=== PATIENT | female | born 1980 | race Caucasian/White ===

== ENCOUNTER 2016-12-18 20:18 | Emergency (ER) | payer OTHER ==
[2016-12-18] MEDS ORDERED: Phenergan 25 MG INJ IV ONE (21:12)
[2016-12-18] MEDS ORDERED: Hydromorphone 1 mg/ml Ampule IV ONE (21:12)
[2016-12-18] MEDS ORDERED: Xopenex 1.25 MG/0.5 ML UD NEBULE IH ONE ×2 (21:15→21:24)
[2016-12-18] MEDS ORDERED: Sodium Chloride 0.9% 1000 ML 1,000 ML IV SCH (21:15)
[2016-12-18] MEDS ORDERED: ROCEPHIN 1 Gm-D5w 50 ml Bag** 1 G/50 ML IVPB IV STA (21:16)
--- NOTE | 2016-12-18 21:17 | ERPHSYRPT ---
- History of Present Illness Time Seen by Provider: 12/18/16 21:05 Source: patient Exam Limitations: no limitations Patient Subjective Stated Complaint: Pt sts at work, started with headache, then experienced bloody nose. No hx of high blood pressure. 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 Sts this resolves if she lays very still. Has hx of a lot of headaches recently. Pain is down the middle of the head. Pt denies N/V. Pt denies shortness of breath or chest pain. Pt with hx of migraines. pain 6/10 in head. Pt sts episodes of blurred vision. No change in pain with bright lights or loud noises. Triage Nursing Assessment: Pt alert, oriented, answers all questions appropriately. Skin p/w/d, resps non-labored. Pt ambulatory to tx room, steady gait noted. Physician History: ABOUT 4.5 HOURS AGO PT NOTICED HER BLOOD PRESSURE WAS ELEVATED AND EVENTUALLY GWENDOLYN TO 180/112 WITH A HEADACHE, NOSE BLEED, TRANSIENT IRREGULAR HEART BEAT AND DIZZINESS WITH MOVEMENT. PT STATES SHE HAS OCCASIONALLY HAD THIS IRREGULAR HEART BEAT FOR THE PAST 19 YEARS AND HAS HAD INCREASED FREQUENCY OF HEADACHES RECENTLY. Allergies/Adverse Reactions: adhesive Allergy (Verified 12/18/16 20:33) latex Adverse Reaction (Verified 12/18/16 20:33) Home Medications: Glycopyrrolate/Formoterol Fum [Bevespi Aerosphere Inhaler] 10.7 gm IH BID [History] Hx Tetanus, Diphtheria Vaccination/Date Given: No Hx Influenza Vaccination/Date Given: No Hx Pneumococcal Vaccination/Date Given: No Immunizations Up to Date: Yes - Review of Systems Constitutional: Other (ELEVATED BLOOD PRESSURE.), No Fever Ears, Nose, & Throat: Epistaxis Respiratory: No Dyspnea Cardiac: Palpitations, No Chest Pain Abdominal/Gastrointestinal: No Abdominal Pain, No Vomiting Neurological: Dizziness, Headache All Other Systems: Reviewed and Negative - Past Medical History Pertinent Past Medical History: Yes Neurological History: Migraines Respiratory History: Asthma Other Medical History: 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, "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" - Past Surgical History Past Surgical History: Yes Gastrointestinal: Cholecystectomy Musculoskeletal: Orthopedic Surgery Female Surgical History: Tubal Ligation - Social History Smoking Status: Current every day smoker How long have you smoked: 18 Exposure to second hand smoke: No Drug Use: none Patient Lives Alone: No - Female History Hx Last Menstrual Period: now - Nursing Vital Signs Nursing Vital Signs: Initial Vital Signs Temperature 99.0 F 12/18/16 20:29 Pulse Rate 94 H 12/18/16 20:29 Respiratory Rate 16 12/18/16 20:29 Blood Pressure 133/61 12/18/16 20:29 O2 Sat by Pulse Oximetry 96 12/18/16 20:29 Pain Scale Pain Intensity 6 - Physical Exam General Appearance: alert Eye Exam: PERRL/EOMI Ears, Nose, Throat Exam: moist mucous membranes, TM abnormal (L) (MILD LEFT TM ERYTHEMA), pharyngeal erythema Neck Exam: normal inspection Respiratory Exam: wheezing (MINIMAL EXPIRATORY WHEEZING) Cardiovascular Exam: normal heart sounds Gastrointestinal/Abdomen Exam: soft, normal bowel sounds Back Exam: normal range of motion Extremity Exam: normal inspection, No pedal edema Neurologic Exam: alert, cooperative, other (NO BABINSKI PRESENT) Skin Exam: warm, dry SpO2 Interpretation: normal SpO2: 96 Oxygen Delivery: Room Air - Course Nursing assessment & vital signs reviewed: Yes EKG Interpreted by Me: RATE (58), Sinus [place], NORMAL AXIS, NORMAL INTERVALS - Radiology Exams Chest X-ray Interpretation: Interpreted by me (INCREASED BRONCHOVASCULAR MARKINGS) - CT Exams Head CT Interpretation: Tele-radiologist Report (NO ACUTE INTRACRANIAL FINDINGS.) Ordered Tests: Active Orders 24 hr Category Date Time Status Clean Catch Urine Specimen STAT Care 12/18/16 21:12 Active EKG-ER Only STAT Care 12/18/16 21:12 Active IV Insertion STAT Care 12/18/16 21:12 Active CHEST 2 VIEWS (PA AND LAT) Stat Exams 12/18/16 21:12 Taken HEAD WITHOUT CONTRAST [CT] Stat Exams 12/18/16 21:12 Taken AMYLASE Stat Lab 12/18/16 21:15 Completed BLOOD CULTURE Stat Lab 12/18/16 21:25 Received CBC W DIFF Stat Lab 12/18/16 21:15 Completed CMP Stat Lab 12/18/16 21:15 Completed HCG QUALITATIVE,SERUM Stat Lab 12/18/16 21:15 Completed LIPASE Stat Lab 12/18/16 21:15 Completed MAGNESIUM Stat Lab 12/18/16 21:15 Completed PROTIME WITH INR Stat Lab 12/18/16 21:15 Completed PTT Stat Lab 12/18/16 21:15 Completed T4 Stat Lab 12/18/16 21:15 Completed TROPONIN Q3H Lab 12/18/16 21:15 Completed TROPONIN Q3H Lab 12/19/16 00:15 Ordered TROPONIN Q3H Lab 12/19/16 03:15 Ordered TROPONIN Q3H Lab 12/19/16 06:15 Ordered TROPONIN Q3H Lab 12/19/16 09:15 Ordered TSH, 3RD Generation Stat Lab 12/18/16 21:15 Completed UA W/RFX UR CULTURE Stat Lab 12/18/16 22:50 Completed Urine Triage Profile Stat Lab 12/18/16 22:50 Received Respiratory Nebulizer STAT RT 12/18/16 21:15 Completed Medication Summary Generic Name Dose Route Start Last Admin Trade Name Freq PRN Reason Stop Dose Admin Sodium Chloride 1,000 mls @ 100 mls/hr 12/18/16 21:15 12/18/16 21:27 Sodium Chloride 0.9% 1000 Ml IV 01/17/17 21:14 100 mls/hr .Q10H ANNE-MARIE Administration Discontinued Medications Generic Name Dose Route Start Last Admin Trade Name Freq PRN Reason Stop Dose Admin Hydromorphone HCl 1 mg 12/18/16 21:12 12/18/16 21:27 Hydromorphone 1 Mg/Ml Ampule IV 12/18/16 21:13 1 mg STAT ONE Administration Hydromorphone HCl Confirm 12/18/16 21:22 Hydromorphone 1 Mg/Ml Ampule Administered 12/18/16 21:23 Dose 1 mg .ROUTE .STK-MED ONE Ceftriaxone Sodium/Dextrose 1 g in 50 mls @ 100 mls/hr 12/18/16 21:16 21:27 Rocephin 1 Gm-D5w 50 Ml Bag IV 12/18/16 21:45 100 mls/hr STAT STA Administration Ceftriaxone Sodium/Dextrose Confirm 12/18/16 21:22 Rocephin 1 Gm-D5w 50 Ml Bag Administered 12/18/16 21:23 Dose 1 g in 50 mls @ ud IV .STK-MED ONE Levalbuterol HCl 1.25 mg 12/18/16 21:15 12/18/16 21:28 Xopenex 1.25 Mg/0.5 Ml Ud Nebule IH 12/18/16 21:16 1.25 mg STAT ONE Administration Levalbuterol HCl Confirm 12/18/16 21:24 Xopenex 1.25 Mg/0.5 Ml Ud Nebule Administered 12/18/16 21:25 Dose 1.25 mg IH .STK-MED ONE Promethazine HCl 12.5 mg 12/18/16 21:12 12/18/16 21:27 Phenergan 25 Mg Inj IV 12/18/16 21:13 12.5 mg STAT ONE Administration Promethazine HCl Confirm 12/18/16 21:22 Phenergan 25 Mg Inj Administered 12/18/16 21:23 Dose 25 mg .ROUTE .STK-MED ONE Sodium Chloride Confirm 12/18/16 21:24 Sodium Chloride 3 Ml Ud Nebules Administered 12/18/16 21:25 Dose 3 ml IH .STK-MED ONE Lab/Rad Data: Laboratory Result Diagrams 12/18/16 21:15 12/18/16 21:15 Laboratory Results 12/18/16 12/18/16 12/18/16 Range/Units 22:50 21:15 21:15 WBC 8.4 (4.0-10.5) K/mm3 RBC 4.51 (4.1-5.4) M/mm3 Hgb 14.3 (12.0-16.0) gm/dl Hct 41.5 (35-47) % MCV 92.0 (78-100) fl MCH 31.7 (26-32) pg MCHC 34.5 (32-36) g/dl RDW 12.9 (11.5-14.0) % Plt Count 196 (150-450) K/mm3 MPV 10.9 H (6-9.5) fl Gran % 52.2 (36.0-66.0) % Lymphocytes % 33.4 (24.0-44.0) % Monocytes % 7.0 (0.0-12.0) % Eosinophils % 7.2 H (0.00-5.0) % Basophils % 0.2 (0.0-0.4) % Basophils # 0.02 (0-0.4) INR 1.02 (0.8-3.0) APTT 28.9 (25.3-37.0) SECONDS Sodium (136-145) mEq/L Potassium (3.5-5.1) mEq/L Chloride (98-107) mEq/L Carbon Dioxide (21-32) mEq/L Anion Gap (5-15) MEQ/L BUN (9-20) mg/dL Creatinine (0.55-1.30) mg/dl Estimated GFR ML/MIN Glucose (70-110) MG/DL Calcium (8.5-10.1) mg/dL Magnesium (1.8-2.4) mg/dL Total Bilirubin (0.2-1.0) mg/dL AST (15-37) U/L ALT (12-78) U/L Alkaline Phosphatase (46-116) U/L Troponin I (0.000-0.056) ng/ml Serum Total Protein (6.4-8.2) gm/dL Albumin (3.4-5.0) g/dL Amylase (25-115) U/L Lipase (73-393) U/L Thyroxine (T4) (4.7-13.3) UG/DL TSH 3rd Generation (0.358-3.740) mIU/L Serum , Qual (Negative) Ur Collection Type CLEAN CATCH Urine Color YELLOW (YELLOW) Urine Appearance CLEAR (CLEAR) Urine pH 7.0 (5-6) Ur Specific [place] 1.010 (1.005-1.025) Urine Protein NEGATIVE (Negative) Urine Ketones NEGATIVE (NEGATIVE) Urine Blood NEGATIVE (0-5) Geovanny/ul Urine Nitrite NEGATIVE (NEGATIVE) Urine Bilirubin NEGATIVE (NEGATIVE) Urine Urobilinogen NORMAL (0-1) mg/dL Ur Leukocyte Esterase NEGATIVE (NEGATIVE) Urine Glucose NEGATIVE (NEGATIVE) mg/dL Specimen Received 12/18/16 2250 12/18/16 12/18/16 12/18/16 Range/Units 21:15 21:15 21:15 WBC (4.0-10.5) K/mm3 RBC (4.1-5.4) M/mm3 Hgb (12.0-16.0) gm/dl Hct (35-47) % MCV (78-100) fl MCH (26-32) pg MCHC (32-36) g/dl RDW (11.5-14.0) % Plt Count (150-450) K/mm3 MPV (6-9.5) fl Gran % (36.0-66.0) % Lymphocytes % (24.0-44.0) % Monocytes % (0.0-12.0) % Eosinophils % (0.00-5.0) % Basophils % (0.0-0.4) % Basophils # (0-0.4) INR (0.8-3.0) APTT (25.3-37.0) SECONDS Sodium 142 (136-145) mEq/L Potassium 3.6 (3.5-5.1) mEq/L Chloride 106 (98-107) mEq/L Carbon Dioxide 23.2 (21-32) mEq/L Anion Gap 16.6 H (5-15) MEQ/L BUN 8 L (9-20) mg/dL Creatinine 1.04 (0.55-1.30) mg/dl Estimated GFR > 60 ML/MIN Glucose 100 (70-110) MG/DL Calcium 9.2 (8.5-10.1) mg/dL Magnesium 1.8 (1.8-2.4) mg/dL Total Bilirubin 1.20 H (0.2-1.0) mg/dL AST 24 (15-37) U/L ALT 54 (12-78) U/L Alkaline Phosphatase 100 (46-116) U/L Troponin I < 0.017 (0.000-0.056) ng/ml Serum Total Protein 7.0 (6.4-8.2) gm/dL Albumin 3.9 (3.4-5.0) g/dL Amylase 38 (25-115) U/L Lipase 199 (73-393) U/L Thyroxine (T4) 7.9 (4.7-13.3) UG/DL TSH 3rd Generation 2.879 (0.358-3.740) mIU/L Serum , Qual NEGATIVE (Negative) Ur Collection Type Urine Color (YELLOW) Urine Appearance (CLEAR) Urine pH (5-6) Ur Specific [place] (1.005-1.025) Urine Protein (Negative) Urine Ketones (NEGATIVE) Urine Blood (0-5) Geovanny/ul Urine Nitrite (NEGATIVE) Urine Bilirubin (NEGATIVE) Urine Urobilinogen (0-1) mg/dL Ur Leukocyte Esterase (NEGATIVE) Urine Glucose (NEGATIVE) mg/dL Specimen Received - Departure Time of Disposition: 23:25 Departure Disposition: Home Clinical Impression: BRONCHITIS, LOM, PHARYNGITIS, HEADACHE, HTN Condition: Stable Critical Care Time: No Referrals: ANA HERNANDEZ [ACTIVE STAFF] - Instructions: Malignant Hypertension, Bronchitis, Otitis Media (Middle Ear Infection), Pharyngitis/Tonsillopharyngitis -- Adult Additional Instructions: FOLLOW UP WITH PRIVATE DOCTOR TOMORROW. Prescriptions: Guaifenesin/Codeine Phosphate [Robitussin AC Syrup] 10 ml PO Q4H PRN PRN #120 ml PRN Reason: Cough Azithromycin 250 mg [Zithromax 250 MG TABLET] 250 mg PO ZPACK #6 tablet
[2016-12-18] MEDS ORDERED: Phenergan 25 MG INJ ONE (21:22)
[2016-12-18] MEDS ORDERED: Sodium Chloride 0.9% 1000 ML 1,000 ML ONE (21:22)
[2016-12-18] MEDS ORDERED: ROCEPHIN 1 Gm-D5w 50 ml Bag** 1 G/50 ML IVPB IV ONE (21:22)
[2016-12-18] MEDS ORDERED: Hydromorphone 1 mg/ml Ampule ONE (21:22)
[2016-12-18] MEDS ORDERED: Sodium Chloride 3 ML UD NEBULES IH ONE (21:24)
[2016-12-18 21:29] LABS: BASOPHIL % 0.2 % (0.0-0.4); Eosinophil % 7.2 % (0.00-5.0); Granulocytes % 52.2 % (36.0-66.0); Lymphocytes % 33.4 % (24.0-44.0); Mean Corpuscular Hemoglobin 31.7 pg (26-32); Mean Platelet Volume 10.9 fl (6-9.5); Platelet Count 196 K/mm3 (150-450); Red Blood Count 4.51 M/mm3 (4.1-5.4); Red Cell Distribution Width 12.9 % (11.5-14.0); White Blood Count 8.4 K/mm3 (4.0-10.5)
[2016-12-18 21:30] LABS: INR 1.02 (0.8-3.0); PROTIME 11.5 SECONDS (9.95-12.35)
[2016-12-18 21:33] LABS: PTT 28.9 SECONDS (25.3-37.0)
[2016-12-18 21:45] LABS: ALBUMIN 3.9 g/dL (3.4-5.0); ALKALINE PHOSPHATASE 100 U/L (46-116); ANION GAP 16.6 MEQ/L (5-15); BLOOD UREA NITROGEN 8 mg/dL (9-20); CHLORIDE 106 mEq/L (98-107); Carbon Dioxide 23.2 mEq/L (21-32); Glucose 100 MG/DL (70-110); LIPASE 199 U/L (73-393); MAGNESIUM 1.8 mg/dL (1.8-2.4); Potassium 3.6 mEq/L (3.5-5.1); SGOT/AST 24 U/L (15-37); SGPT/ALT 54 U/L (12-78); SODIUM 142 mEq/L (136-145)
[2016-12-18 23:06] LABS: ADD URINE CULTURE? NO (NO); Bilirubin NEGATIVE (NEGATIVE); Blood NEGATIVE Ery/ul (0-5); COMPLETE URINE MICROSCOPIC? NO; Collection Type CLEAN CATCH; Glucose NEGATIVE (NEGATIVE); Leukocyte Esterase NEGATIVE (NEGATIVE)
[2016-12-18 23:35] VITALS: BP 139/72; PULSE 64; O2SAT 99
--- NOTE | 2016-12-19 08:43 | XRAY ---
Indication: Headache and nosebleed. High blood pressure. History of migraines. Multiple contiguous axial images obtained through the head without contrast. Comparison: January 19, 2009. Again normal appearing brain parenchyma, ventricles, and bony calvarium. Visualized paranasal sinuses and mastoid air cells clear. Impression: Stable normal CT head without contrast exam. Comment: Preliminary interpretation was made by [facility]. No discrepancy. CT DI 70.21
--- NOTE | 2016-12-19 08:46 | XRAY ---
Indication: Wheezing and cough. History of asthma. Comparison: January 18, 2009. AP/lateral chest remains clear. Heart is not enlarged. Bony thorax intact. No new/acute findings. Impression: Stable nonacute chest.
== END 2016-12-18 23:35 | disposition home or self-care (01) ==
LOC: ED 20:18
DX: J40 Bronchitis, not specified as acute or chronic (principal); H66.92 Otitis media, unspecified, left ear; J02.9 Acute pharyngitis, unspecified; R51 Headache; I10 Essential (primary) hypertension
CPT/HCPCS: 36000; 36415; 70450; 71020; 80053; 80307; 81002; 82150; 83690; 83735; 84436; 84443; 84484; 84703; 85025; 85610; 85730; 87040; 93005; 94640; 96360; 96361; 96365; 96374; 96375; 99283; 99284; J0696; J1170; J2550; A9270-GY

== ENCOUNTER 2022-02-01 12:08 | Observation (INO) | payer OTHER ==
[2022-02-01 13:55] LABS: INFLUENZA A NEGATIVE (NEGATIVE); INFLUENZA B NEGATIVE (NEGATIVE); RESPIRATORY SYNCTIAL VIRUS NEGATIVE (Negative); SARS-CoV-2 Xpert Express NEGATIVE (NEGATIVE)
[2022-02-01] MEDS ORDERED: Tessalon Perles 100 MG PO PRN (13:57)
[2022-02-01] MEDS ORDERED: UBROGEPANT 50 MG PO PRN (14:20)
[2022-02-01] MEDS: DUONEB 0.5-3 MG/3 ml Neb IH SCH ×3 (14:20→22:54)
[2022-02-01] MEDS ORDERED: FREMANEZUMAB VFRM 225 MG/1.5 ML SQ SCH (14:30)
[2022-02-01] MEDS ORDERED: MEDICATION INTERVENTION MC SCH ×4 (14:30→14:45)
[2022-02-01] MEDS ORDERED: AUTO INJCT SQ SCH (14:30)
[2022-02-01 14:48] LABS: Hematocrit 43.9 % (35-47); Hemoglobin 15.1 g/dL (12.0-16.0); Mean Cell Volume 94.4 fL (78-100); Mean Corpuscular Hemoglobin 32.5 pg (26-32); Mean Corpuscular Hgb Concent. 34.4 g/dL (32-36); Mean Platelet Volume 10.7 fL (7.5-11.0); Platelet Count 189 x10^3/uL (150-450); Red Blood Count 4.65 x10^6/uL (4.1-5.4); Red Cell Distribution Width 12.6 % (11.5-14.0); White Blood Count 7.9 x10^3/uL (4.0-10.5)
[2022-02-01 15:16] LABS: ANION GAP 10.2 MEQ/L (5-15); BLOOD UREA NITROGEN 10 mg/dL (7-17); CHLORIDE 101 mmol/L (98-107); Calcium 9.3 mg/dL (8.4-10.2); Carbon Dioxide 31 mmol/L (22-30); Creatinine 1 0.72 mg/dL (0.52-1.04); EST GLOMERULAR FILTRATION RATE > 60.0 ML/MIN; Glucose 102 mg/dL (74-106); Potassium 3.2 mmol/L (3.5-5.1); SODIUM 139 mmol/L (137-145)
[2022-02-01] MEDS ORDERED: PATIENT OWN MEDICATION PO PRN (15:20)
[2022-02-01] MEDS: COREG 12.5 MG PO SCH ×2 (15:30→21:22)
[2022-02-01] MEDS: solu-MEDROL 40 MG, Sterile H2O 10 ml 1 ML IV SCH ×4 (15:30→21:22)
[2022-02-01] MEDS: hydroDIURIL 25 MG PO SCH (15:30)
[2022-02-01] MEDS: ROCEPHIN 1 Gm-D5w 50 ml Bag** 1 G/50 ML IVPB IV SCH (15:30)
[2022-02-01] MEDS ORDERED: PROVENTIL 2.5 MG/3 ML NEB IH PRN (15:57)
[2022-02-01] MEDS: Zithromax 500 MG/ 250 ML NaCl Premix 500 MG/250 ML IVPB IV SCH (18:12)
[2022-02-01] MEDS: PATIENT OWN MEDICATION PO SCH (21:22)
[2022-02-01] MEDS: HYDROCODONE-CHLORPHEN ER SUSP PO PRN (21:23)
[2022-02-01] MEDS ORDERED: VARENICLINE TARTRATE 0.5 MG PO SCH (22:00)
[2022-02-02] MEDS: DUONEB 0.5-3 MG/3 ml Neb IH SCH ×6 (03:04→22:05)
[2022-02-02 05:36] LABS: Hematocrit 43.9 % (35-47); Mean Cell Volume 94.8 fL (78-100); Mean Corpuscular Hemoglobin 32.4 pg (26-32); Mean Corpuscular Hgb Concent. 34.2 g/dL (32-36); Mean Platelet Volume 10.6 fL (7.5-11.0); Platelet Count 188 x10^3/uL (150-450); Red Blood Count 4.63 x10^6/uL (4.1-5.4); Red Cell Distribution Width 12.5 % (11.5-14.0); White Blood Count 11.5 x10^3/uL (4.0-10.5)
[2022-02-02] MEDS: solu-MEDROL 40 MG, Sterile H2O 10 ml 1 ML IV SCH ×6 (05:51→22:06)
[2022-02-02 05:54] LABS: ALBUMIN 4.2 g/dL (3.5-5.0); ALKALINE PHOSPHATASE 81 U/L (38-126); ANION GAP 8.5 MEQ/L (5-15); BLOOD UREA NITROGEN 12 mg/dL (7-17); CHLORIDE 100 mmol/L (98-107); Calcium 9.7 mg/dL (8.4-10.2); Carbon Dioxide 31 mmol/L (22-30); Creatinine 1 0.68 mg/dL (0.52-1.04); EST GLOMERULAR FILTRATION RATE > 60.0 ML/MIN; Glucose 164 mg/dL (74-106); Potassium 3.5 mmol/L (3.5-5.1); SGOT/AST 28 U/L (14-36); SGPT/ALT 56 U/L (0-35); SODIUM 136 mmol/L (137-145); Total Protein 6.8 g/dL (6.3-8.2)
--- NOTE | 2022-02-02 08:58 | XRAY ---
Indication: Bronchitis, chest pain, cough, and short of breath. Comparison: February 01, 2022 PA/lateral chest remains clear. Heart not enlarged. Bony thorax intact. No new/acute findings.
[2022-02-02] MEDS: COREG 12.5 MG PO SCH ×2 (09:55→22:06)
[2022-02-02] MEDS: PATIENT OWN MEDICATION PO SCH ×3 (09:55→22:06)
[2022-02-02] MEDS: hydroDIURIL 25 MG PO SCH (09:55)
[2022-02-02] MEDS: SYNTHROID 25 MCG PO SCH (09:55)
[2022-02-02] MEDS ORDERED: FLUZONE QUAD 2022-2023 SYRINGE IM ONE (10:00)
[2022-02-02] MEDS ORDERED: NON-FORMULARY ITEM (Dextroamphetamine/Amphetamine [Adderall 10 Mg Tablet] 10 MG Tablet) PO SCH (10:00)
[2022-02-02] MEDS ORDERED: hydroDIURIL 25 MG PO SCH (10:00)
[2022-02-02] MEDS: HYDROCODONE-CHLORPHEN ER SUSP PO PRN ×2 (10:02→22:14)
[2022-02-02] MEDS: ROCEPHIN 1 Gm-D5w 50 ml Bag** 1 G/50 ML IVPB IV SCH (10:03)
[2022-02-02] MEDS: Zithromax 500 MG/ 250 ML NaCl Premix 500 MG/250 ML IVPB IV SCH (11:16)
--- NOTE | 2022-02-02 17:50 | PCM.HP.ADD ---
Addendum to History & Physical - History & Physical Addendum Addendum to History & Physical: This certifies that the History & Physical in the electronic chart reflects the current health status of the patient. If there are changes in the H&P these changes/exceptions are listed as follows.
--- NOTE | 2022-02-02 17:53 | PCM.HP ---
History of Present Illness - Chief Complaint Chief Complaint: ACUTE EXACERBATION OF CHRONIC BRONCHITIS History of Present Illness: is a 41 year old female came to office with 2 weeks history of cough and shortness of breath and fever. - Review of Systems Constitutional: Fever, Chills, Weakness Eyes: No Symptoms Ears, Nose, & Throat: No Symptoms Respiratory: Cough, Orthopnea, Short Of Breath, Wheezing Cardiac: No Chest Pain, No Edema, No Syncope Abdominal/Gastrointestinal: No Abdominal Pain, No Nausea, No Vomiting, No Diarrhea Genitourinary Symptoms: No Dysuria Musculoskeletal: No Back Pain, No Neck Pain Skin: No Rash Neurological: No Dizziness, No Focal Weakness, No Sensory Changes Psychological: No Symptoms Endocrine: No Symptoms Hematologic/Lymphatic: No Symptoms Immunological/Allergic: No Symptoms Medications & Allergies Home Medications: Home Medication List Carvedilol 12.5 mg [Coreg 12.5 mg] 12.5 mg PO BID 02/01/22 [History Confirmed 02/01/22] Dextroamphetamine/Amphetamine [Adderall 10 mg Tablet] 10 mg PO DAILY 02/01/22 [History Confirmed 02/01/22] Fremanezumab-Vfrm [Ajovy Autoinjector] 1.5 ml SQ UD 02/01/22 [History Confirmed 02/01/22] Hydrochlorothiazide 25 mg [hydroDIURIL 25 MG] 25 mg PO DAILY 02/01/22 [History Confirmed 02/01/22] Levothyroxine Sodium 25 Mcg [Synthroid 25 Mcg] 25 mcg PO DAILY 02/01/22 [History Confirmed 02/01/22] Ubrogepant [Ubrelvy] 50 mg PO Q6HPRN PRN 02/01/22 [History Confirmed 02/01/22] Varenicline Tartrate 0.5 mg PO BID 02/01/22 [History Confirmed 02/01/22] Allergies/Adverse Reactions: Allergies Allergy/AdvReac Type Severity Reaction Status Date / Time adhesive Allergy Verified 12/18/16 20:33 gluten Allergy Verified 02/01/22 14:03 latex AdvReac Verified 12/18/16 20:33 - Past Medical History Past Medical History: Yes Neurological History: Migraines ENT History: No Pertinent History Cardiac History: Hypertension Respiratory History: Asthma, Bronchitis Endocrine Medical History: Hypothyroidism Musculoskelatal History: No Pertinent History GI Medical History: Other History: No Pertinent History Pyscho-Social History: Attention Deficit Disorder Reproductive Disorders: Cervical Cancer Comment: 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 CELIAC DISEASE - Female History Are you now?: No - Past Surgical History Past Surgical History: Yes Neuro Surgical History: No Pertinent History Cardiac History: Other Respiratory Surgery: No Pertinent History GI Surgical History: Cholecystectomy Genitourinary Surgical Hx: No Pertinent History Musculskeletal Surgical Hx: Orthopedic Surgery Female Surgical History: Hysterectomy, Tubal Ligation Other Surgical History: 2 KNEE AND 1 SHOULDER. CARDIAC ABLATION 16 YEARS OLD - Social History Smoking Status: Current every day smoker How long have you smoked: 14 YEARS Exposure to second hand smoke: No Alcohol: None Drug Use: none - Physical Exam Vital Signs: Vital Signs - 24 hr Temp Pulse Resp BP Pulse Ox 02/02/22 16:00 97.7 F 95 H 16 118/64 95 02/02/22 14:32 79 20 95 02/02/22 12:00 97.1 F 91 H 16 109/68 96 02/02/22 11:15 82 18 95 02/02/22 08:02 94 H 20 96 02/02/22 07:54 96.9 F 88 17 119/58 94 L 02/02/22 04:00 98.2 F 64 18 130/58 95 02/02/22 03:07 84 16 95 02/02/22 00:00 98.2 F 64 18 128/60 95 02/01/22 22:55 77 20 98 02/01/22 20:00 97.1 F 78 20 132/64 95 02/01/22 19:16 77 18 97 General Appearance: no apparent distress, alert Neurologic Exam: alert, oriented x 3, cooperative, normal mood/affect, nml cerebellar function, nml station & gait, sensation nml, No motor deficits Eye Exam: PERRL/EOMI, eyes nml inspection Ears, Nose, Throat Exam: normal ENT inspection, TMs normal, pharynx normal, moist mucous membranes Neck Exam: normal inspection, non-tender, supple, full range of motion Respiratory Exam: diminished breath sounds, crackles/rales, rhonchi, wheezing, No respiratory distress Cardiovascular Exam: regular rate/rhythm, normal heart sounds, normal peripheral pulses Gastrointestinal/Abdomen Exam: soft, normal bowel sounds, No tenderness, No mass Back Exam: normal inspection, normal range of motion, No CVA tenderness, No vertebral tenderness Extremity Exam: normal inspection, normal range of motion, pelvis stable Skin Exam: normal color, warm, dry, No rash Lymphatic Exam: No adenopathy Results - Labs Lab/Micro Results: Lab Results-Last 24 Hours 02/02/22 02/02/22 Range/Units 04:50 04:50 WBC 11.5 H (4.0-10.5) x10^3/uL RBC 4.63 (4.1-5.4) x10^6/uL Hgb 15.0 (12.0-16.0) g/dL Hct 43.9 (35-47) % MCV 94.8 (78-100) fL MCH 32.4 H (26-32) pg MCHC 34.2 (32-36) g/dL RDW 12.5 (11.5-14.0) % Plt Count 188 (150-450) x10^3/uL MPV 10.6 (7.5-11.0) fL Sodium 136 L (137-145) mmol/L Potassium 3.5 (3.5-5.1) mmol/L Chloride 100 (98-107) mmol/L Carbon Dioxide 31 H (22-30) mmol/L Anion Gap 8.5 (5-15) MEQ/L BUN 12 (7-17) mg/dL Creatinine 0.68 (0.52-1.04) mg/dL Estimated GFR > 60.0 ML/MIN Glucose 164 H (74-106) mg/dL Calcium 9.7 (8.4-10.2) mg/dL Total Bilirubin 0.60 (0.2-1.3) mg/dL AST 28 (14-36) U/L ALT 56 H (0-35) U/L Alkaline Phosphatase 81 (38-126) U/L Serum Total Protein 6.8 (6.3-8.2) g/dL Albumin 4.2 (3.5-5.0) g/dL - Radiology Impressions Radiology Exams & Impressions: Radiology Procedures Category Date Time Status CHEST 2 VIEWS (PA AND LAT) Routine Exams 02/02/22 06:09 Completed - Other Procedures and Tests Respiratory Therapy 02/02/22 07:00 Respiratory Therapy Assessment DAILY Assessment/Plan (1) Acute exacerbation of chronic bronchitis Current Visit: Yes Status: Acute Assessment & Plan: Chief Complaint Diagnosis ACUTE EXACERBATION OF CHRONIC BRONCHITIS Allergies Allergy/AdvReac Type Severity Reaction Status Date / Time adhesive Allergy Verified 12/18/16 20:33 gluten Allergy Verified 02/01/22 14:03 latex AdvReac Verified 12/18/16 20:33 Vital Signs (Last 24 hours) Temp Pulse Resp BP Pulse Ox 02/02/22 16:00 97.7 F 95 H 16 118/64 95 02/02/22 14:32 79 20 95 02/02/22 12:00 97.1 F 91 H 16 109/68 96 02/02/22 11:15 82 18 95 02/02/22 08:02 94 H 20 96 02/02/22 07:54 96.9 F 88 17 119/58 94 L 02/02/22 04:00 98.2 F 64 18 130/58 95 02/02/22 03:07 84 16 95 02/02/22 00:00 98.2 F 64 18 128/60 95 02/01/22 22:55 77 20 98 02/01/22 20:00 97.1 F 78 20 132/64 95 02/01/22 19:16 77 18 97 Home Medications Medication Instructions Recorded Confirmed Last Taken Type Carvedilol 12.5 mg [Coreg 12.5 12.5 mg PO BID 02/01/22 02/01/22 01/31/22 History mg] Dextroamphetamine/Amphetamine 10 mg PO DAILY 02/01/22 02/01/22 02/01/22 History [Adderall 10 mg Tablet] Fremanezumab-Vfrm [Ajovy 1.5 ml SQ UD 02/01/22 02/01/22 01/30/22 History Autoinjector] Hydrochlorothiazide 25 mg 25 mg PO DAILY 02/01/22 02/01/22 01/31/22 History [hydroDIURIL 25 MG] Levothyroxine Sodium 25 Mcg 25 mcg PO DAILY 02/01/22 02/01/22 02/01/22 History [Synthroid 25 Mcg] Ubrogepant [Ubrelvy] 50 mg PO Q6HPRN PRN 02/01/22 02/01/22 Unknown History Varenicline Tartrate 0.5 mg PO BID 02/01/22 02/01/22 01/31/22 History Current Medications Generic Name Dose Route Start Last Admin Trade Name Freq PRN Reason Stop Dose Admin Albuterol Sulfate 2.5 mg 02/01/22 15:57 Albuterol Sulfate 2.5 Mg/3 Ml [facility] 03/03/22 15:56 Q4HPRN PRN SHORTNESS OF BREATH Albuterol/Ipratropium 3 ml 02/01/22 15:00 02/02/22 14:30 Ipratropium/Albuterol Sulfate 3 Ml [facility] 03/03/22 14:59 3 ml Q4HRT ANNE-MARIE Administration Benzonatate 100 mg 02/01/22 13:57 Benzonatate 100 Mg Capsule PO 03/03/22 13:56 QID PRN PRN COUGH Carvedilol 12.5 mg 02/01/22 15:00 02/02/22 09:55 Carvedilol 12.5 Mg Tablet PO 03/03/22 14:59 12.5 mg BID ANNE-MARIE Administration Chlorphenir/Hydrocodone Polistirex 5 ml 02/01/22 13:57 02/02/22 10:02 Hydrocodone/Chlorphen P-Stirex 1 Ml Britt.Er.12h PO 03/03/22 13:56 5 ml [id number] PRN Administration COUGH Methylprednisolone Sodium 0 mg 02/01/22 14:00 02/02/22 14:07 Succinate 40 mg/ Sterile Water IV 03/03/22 13:59 40 mg 1 ml Q8HT ANNE-MARIE Administration Hydrochlorothiazide 25 mg 02/01/22 15:00 02/02/22 09:55 Hydrochlorothiazide 25 Mg Tablet PO 03/03/22 14:59 25 mg DAILY ANNE-MARIE Administration Ceftriaxone Sodium/Dextrose 1 g in 50 mls @ 100 mls/hr 02/01/22 16:00 02/02/22 10:03 Rocephin 1 Gm-D5w 50 Ml Bag IV 02/04/22 15:59 100 mls/hr Q24H10 ANNE-MARIE Administration Azithromycin 500 mg in 250 mls @ 250 mls/hr 02/01/22 18:00 02/02/22 11:16 Zithromax 500 Mg/ 250 Ml Nacl Premix IV 03/03/22 17:59 250 mls/hr Q24H10 ANNE-MARIE Administration Levothyroxine Sodium 25 mcg 02/02/22 10:00 02/02/22 09:55 Levothyroxine Sodium 25 Mcg Tablet PO 03/04/22 09:59 25 mcg DAILY ANNE-MARIE Administration Varenicline 0.5 Mg - 1 each 02/01/22 22:00 02/02/22 09:55 Patient Own Med PO 03/03/22 21:59 1 each Misc BID ANNE-MARIE Administration Adderall 10 Mg - 1 each 02/02/22 10:00 02/02/22 09:56 Patient Own Med PO 03/04/22 09:59 1 each Misc DAILY ANNE-MARIE Administration Ubrelvy 50 Mg - 1 each 02/01/22 15:20 Patient Own Med PO 03/03/22 15:19 Misc Q6HPRN PRN Discontinued Medications Generic Name Dose Route Start Last Admin Trade Name Freq PRN Reason Stop Dose Admin Miscellaneous Information 1 each 02/01/22 14:30 Medication Intervention 1 Each Each 03/03/22 14:29 .RN TO CHECK ANNE-MARIE Miscellaneous Information 1 each 02/01/22 14:30 Medication Intervention 1 Each Each 03/03/22 14:29 .RN TO CHECK ANNE-MARIE Miscellaneous Information 1 each 02/01/22 14:45 Medication Intervention 1 Each Each 03/03/22 14:44 .RN TO CHECK ANNE-MARIE Miscellaneous Information 1 each 02/01/22 14:45 Medication Intervention 1 Each Each 03/03/22 14:44 .RN TO CHECK ANNE-MARIE Intake & Output (Last 24 hours) 01/31/22 02/01/22 02/02/22 02/03/22 11:59 11:59 11:59 11:59 Intake Total 1440 240 Balance 1440 240 Weight 98.4 kg Laboratory Results (Last 24 hours) 02/02/22 02/02/22 04:50 04:50 WBC 11.5 H RBC 4.63 Hgb 15.0 Hct 43.9 MCV 94.8 MCH 32.4 H MCHC 34.2 RDW 12.5 Plt Count 188 MPV 10.6 Sodium 136 L Potassium 3.5 Chloride 100 Carbon Dioxide 31 H Anion Gap 8.5 BUN 12 Creatinine 0.68 Estimated GFR > 60.0 Glucose 164 H Calcium 9.7 Total Bilirubin 0.60 AST 28 ALT 56 H Alkaline Phosphatase 81 Serum Total Protein 6.8 Albumin 4.2 Orders (Last 24 hours) Category Date Time Status CHEST 2 VIEWS (PA AND LAT) Routine Exams 02/02/22 06:09 Completed CBC AM.LAB Lab 02/02/22 04:50 Completed CMP AM.LAB Lab 02/02/22 04:50 Completed Azithromycin 500 mg/250 ml [Zithromax 500 MG/ 250 ML Med 02/01/22 18:00 Active NaCl Premix] 500 mg in 250 ml IV Q24H10 Flu Vacc [id number](6Mos Up)/Pf [Fluzone Quad Med 02/02/22 10:00 Discontinued Syringe] 60 mcg IM .ONCE ONE Levothyroxine Sodium 25 Mcg [Synthroid 25 Mcg] Med 02/02/22 10:00 Active 25 mcg PO DAILY Patient Own Med [Patient Own Medication] Med 02/01/22 22:00 Active 1 each PO BID Patient Own Med [Patient Own Medication] Med 02/02/22 10:00 Active 1 each PO DAILY Respiratory Therapy Assessment DAILY RT 02/02/22 07:00 Active Patient Care Notes (Last 24 hours) 02/02/22 03:30 Nursing Note by Gretta High Dr notified of potassium level of 3.2. No orders received. Initialized on 02/02/22 03:30 - END OF NOTE Code(s): J20.9 - ACUTE BRONCHITIS, UNSPECIFIED; J42 - UNSPECIFIED CHRONIC BRONCHITIS
[2022-02-03] MEDS: DUONEB 0.5-3 MG/3 ml Neb IH SCH ×3 (02:52→10:36)
[2022-02-03] MEDS: solu-MEDROL 40 MG, Sterile H2O 10 ml 1 ML IV SCH ×2 (06:19)
[2022-02-03] MEDS: COREG 12.5 MG PO SCH (10:19)
[2022-02-03] MEDS: hydroDIURIL 25 MG PO SCH (10:19)
[2022-02-03] MEDS: SYNTHROID 25 MCG PO SCH (10:19)
[2022-02-03] MEDS: PATIENT OWN MEDICATION PO SCH ×2 (10:19→10:20)
[2022-02-03] MEDS: ROCEPHIN 1 Gm-D5w 50 ml Bag** 1 G/50 ML IVPB IV SCH (10:20)
[2022-02-03 11:35] VITALS: BP 123/76; PULSE 75; O2SAT 91
[2022-02-03] MEDS: Zithromax 500 MG/ 250 ML NaCl Premix 500 MG/250 ML IVPB IV SCH (11:41)
--- NOTE | 2022-02-03 13:04 | PCM.DS ---
Discharge Summary Date of Admission: 02/01/22 12:39 Admitting Physician: JAQUELIN ZABALA Primary Care Provider: JAQUELIN ZABALA Allergies Allergies adhesive Allergy (Verified 12/18/16 20:33) gluten Allergy (Verified 02/01/22 14:03) latex Adverse Reaction (Verified 12/18/16 20:33) Hospital Summary - Hospital Course Hospital Course: Chief Complaint Diagnosis ACUTE EXACERBATION OF CHRONIC BRONCHITIS Allergies Allergy/AdvReac Type Severity Reaction Status Date / Time adhesive Allergy Verified 12/18/16 20:33 gluten Allergy Verified 02/01/22 14:03 latex AdvReac Verified 12/18/16 20:33 Vital Signs (Last 24 hours) Temp Pulse Resp BP Pulse Ox 02/03/22 11:34 98.0 F 75 16 123/76 91 L 02/03/22 10:36 80 14 94 L 02/03/22 07:08 97.5 F 62 17 104/58 95 02/03/22 06:53 80 22 95 02/03/22 04:00 97.1 F 72 21 103/55 90 L 02/03/22 02:54 81 16 94 L 02/03/22 00:00 96.9 F 86 20 114/65 91 L 02/02/22 22:08 69 20 96 02/02/22 20:00 97.1 F 86 20 117/67 95 02/02/22 19:00 62 20 96 02/02/22 16:00 97.7 F 95 H 16 118/64 95 02/02/22 14:32 79 20 95 Home Medications Medication Instructions Recorded Confirmed Last Taken Type Carvedilol 12.5 mg [Coreg 12.5 12.5 mg PO BID 02/01/22 02/01/22 01/31/22 History mg] Dextroamphetamine/Amphetamine 10 mg PO DAILY 02/01/22 02/01/22 02/01/22 History [Adderall 10 mg Tablet] Fremanezumab-Vfrm [Ajovy 1.5 ml SQ UD 02/01/22 02/01/22 01/30/22 History Autoinjector] Hydrochlorothiazide 25 mg 25 mg PO DAILY 02/01/22 02/01/22 01/31/22 History [hydroDIURIL 25 MG] Levothyroxine Sodium 25 Mcg 25 mcg PO DAILY 02/01/22 02/01/22 02/01/22 History [Synthroid 25 Mcg] Ubrogepant [Ubrelvy] 50 mg PO Q6HPRN PRN 02/01/22 02/01/22 Unknown History Varenicline Tartrate 0.5 mg PO BID 02/01/22 02/01/22 01/31/22 History Current Medications Generic Name Dose Route Start Last Admin Trade Name Freq PRN Reason Stop Dose Admin Albuterol Sulfate 2.5 mg 02/01/22 15:57 Albuterol Sulfate 2.5 Mg/3 Ml Neb IH 03/03/22 15:56 Q4HPRN PRN SHORTNESS OF BREATH Albuterol/Ipratropium 3 ml 02/01/22 15:00 02/03/22 10:36 Ipratropium/Albuterol Sulfate 3 Ml Ampul.Neb IH 03/03/22 14:59 3 ml Q4HRT ANNE-MARIE Administration Benzonatate 100 mg 02/01/22 13:57 Benzonatate 100 Mg Capsule PO 03/03/22 13:56 QID PRN PRN COUGH Carvedilol 12.5 mg 02/01/22 15:00 02/03/22 10:19 Carvedilol 12.5 Mg Tablet PO 03/03/22 14:59 12.5 mg BID ANNE-MARIE Administration Chlorphenir/Hydrocodone Polistirex 5 ml 02/01/22 13:57 02/02/22 22:14 Hydrocodone/Chlorphen P-Stirex 1 Ml Britt.Er.12h PO 03/03/22 13:56 5 ml [id number] PRN Administration COUGH Methylprednisolone Sodium 0 mg 02/01/22 14:00 02/03/22 06:19 Succinate 40 mg/ Sterile Water IV 03/03/22 13:59 40 mg 1 ml Q8HT ANNE-MARIE Administration Hydrochlorothiazide 25 mg 02/01/22 15:00 02/03/22 10:19 Hydrochlorothiazide 25 Mg Tablet PO 03/03/22 14:59 25 mg DAILY ANNE-MARIE Administration Ceftriaxone Sodium/Dextrose 1 g in 50 mls @ 100 mls/hr 02/01/22 16:00 02/03/22 10:20 Rocephin 1 Gm-D5w 50 Ml Bag IV 02/04/22 15:59 100 mls/hr Q24H10 ANNE-MARIE Administration Azithromycin 500 mg in 250 mls @ 250 mls/hr 02/01/22 18:00 02/03/22 11:41 Zithromax 500 Mg/ 250 Ml Nacl Premix IV 03/03/22 17:59 250 mls/hr Q24H10 ANNE-MARIE Administration Levothyroxine Sodium 25 mcg 02/02/22 10:00 02/03/22 10:19 Levothyroxine Sodium 25 Mcg Tablet PO 03/04/22 09:59 25 mcg DAILY ANNE-MARIE Administration Varenicline 0.5 Mg - 1 each 02/01/22 22:00 02/03/22 10:20 Patient Own Med PO 03/03/22 21:59 1 each Misc BID ANNE-MARIE Administration Adderall 10 Mg - 1 each 02/02/22 10:00 02/03/22 10:19 Patient Own Med PO 03/04/22 09:59 1 each Misc DAILY ANNE-MARIE Administration Ubrelvy 50 Mg - 1 each 02/01/22 15:20 Patient Own Med PO 03/03/22 15:19 Misc Q6HPRN PRN Discontinued Medications Generic Name Dose Route Start Last Admin Trade Name Freq PRN Reason Stop Dose Admin Miscellaneous Information 1 each 02/01/22 14:30 Medication Intervention 1 Each Each 03/03/22 14:29 .RN TO CHECK ANNE-MARIE Miscellaneous Information 1 each 02/01/22 14:30 Medication Intervention 1 Each Each 03/03/22 14:29 .RN TO CHECK ANNE-MARIE Miscellaneous Information 1 each 02/01/22 14:45 Medication Intervention 1 Each Each 03/03/22 14:44 .RN TO CHECK ANNE-MARIE Miscellaneous Information 1 each 02/01/22 14:45 Medication Intervention 1 Each Each 03/03/22 14:44 .RN TO CHECK ANNE-MARIE Intake & Output (Last 24 hours) 02/01/22 02/02/22 02/03/22 02/04/22 11:59 11:59 11:59 11:59 Intake Total 1440 2249 375 Balance 1440 2249 375 Weight 98.4 kg Patient Care Notes (Last 24 hours) 02/03/22 12:56 Case Management Note by Charito Jiang ORDER FOR [employer] MACHINE CALLED INTO [facility] Initialized on 02/03/22 12:56 - END OF NOTE 02/03/22 10:16 Case Management Note by Charito Jinag REVIEWED CHART- NO NEW NEEDS IDENTIFIED FOR DC. SHE PLANS TO RETURN HOME TO HER PRIOR LEVEL OF FUNCTIONING AT TIME OF DC. PATIENT REPORTS SHE FEELS MORE RELIEF WITH NEBULES VS INHALERS. SHE WOULD LIKE AN RX FOR NEBS AT TIME OF DC AND WILL NEED AN RX FOR NEB MACHINE CALLED INTO HER PHARMACY. PRIMARY RN AWARE Initialized on 02/03/22 10:16 - END OF NOTE - Vitals & Intake/Output Vital Signs: Vital Signs Temperature 98.0 F 02/03/22 11:34 Pulse Rate 75 02/03/22 11:34 Respiratory Rate 16 02/03/22 11:34 Blood Pressure 123/76 02/03/22 11:34 O2 Sat by Pulse Oximetry 91 L 02/03/22 11:34 Intake & Output: Intake & Output 02/01/22 02/02/22 02/03/22 02/04/22 11:59 11:59 11:59 11:59 Intake Total 1440 2249 375 Balance 1440 2249 375 Weight 98.4 kg - Lab Result Diagrams: 02/02/22 04:50 02/02/22 04:50 - Radiology Exams Ordered Rad Exams-Entire Visit: Radiology Procedures Category Date Time Status CHEST 2 VIEWS (PA AND LAT) Routine Exams 02/02/22 06:09 Completed - Procedures and Test Procedures and Tests throughout Hospitalization: Therapy Orders & Screens 02/01/22 14:50 Oxygen NASAL CANNULA 2 lpm Comment: Diagnosis: ACUTE EXACERBATION OF CHRONIC BRONCHITIS 02/01/22 14:52 Flutter Therapy UD Comment: Diagnosis: ACUTE EXACERBATION OF CHRONIC BRONCHITIS 02/02/22 07:00 Respiratory Therapy Assessment DAILY Comment: Diagnosis: ACUTE EXACERBATION OF CHRONIC BRONCHITIS Discharge Exam General Appearance: no apparent distress, alert Neurologic Exam: alert, oriented x 3, cooperative, normal mood/affect, nml cerebellar function, sensation nml, No motor deficits Eye Exam: PERRL, EOMI, eyes nml inspection Ears, Nose, Throat Exam: normal ENT inspection, pharynx normal, moist mucous membranes Neck Exam: normal inspection, non-tender, supple, full range of motion Respiratory Exam: normal breath sounds, lungs clear, No respiratory distress Cardiovascular Exam: regular rate/rhythm, normal heart sounds Gastrointestinal/Abdomen Exam: soft, No tenderness, No mass Pelvic Exam: deferred Rectal Exam: deferred Back Exam: normal inspection, normal range of motion, No CVA tenderness, No vertebral tenderness Extremity Exam: normal inspection, normal range of motion Skin Exam: normal color, warm, dry Final Diagnosis/Problem List - Final Discharge Diagnosis/Problem (1) Acute exacerbation of chronic bronchitis Current Visit: Yes Status: Acute Code(s): J20.9 - ACUTE BRONCHITIS, UNSPECIFIED; J42 - UNSPECIFIED CHRONIC BRONCHITIS - Discharge Discharge Date: 02/03/22 Disposition: Home, Self-Care Condition: Stable Prescriptions: No Action Ubrogepant [Ubrelvy] 50 mg PO Q6HPRN PRN PRN Reason: Headache Fremanezumab-Vfrm [Ajovy Autoinjector] 1.5 ml SQ UD Levothyroxine Sodium 25 Mcg [Synthroid 25 Mcg] 25 mcg PO DAILY Hydrochlorothiazide 25 mg [hydroDIURIL 25 MG] 25 mg PO DAILY Carvedilol 12.5 mg [Coreg 12.5 mg] 12.5 mg PO BID Dextroamphetamine/Amphetamine [Adderall 10 mg Tablet] 10 mg PO DAILY Varenicline Tartrate 0.5 mg PO BID Additional Instructions: NEBULIZER MACHINE CALLED INTO [facility] Follow up with: JAQUELIN ZABALA MD [Primary Care Provider] - 02/10/22 2:30 pm ([facility])
== END 2022-02-03 13:26 | disposition home or self-care (01) ==
LOC: MED SURG 12:39
PROVIDERS: ADMIT General Practice; ATTEND General Practice
DX: J20.9 Acute bronchitis, unspecified (principal); I10 Essential (primary) hypertension; Z79.899 Other long term (current) drug therapy; Z20.828 Contact with and (suspected) exposure to other viral communicable diseases; Z85.41 Personal history of malignant neoplasm of cervix uteri; Z72.0 Tobacco use
CPT/HCPCS: 0241U; 36415; 71046; 80048; 80053; 85027; 94640; 94667; 94760; G0378; J0456; J0696; J2920; A9270-GY

== ENCOUNTER 2025-01-03 01:15 | Emergency (ER) | payer OTHER ==
--- NOTE | 2025-01-03 02:21 | ERPHSYRPT ---
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 she reports this injury occurred around 10:30 PM she felt like she felt a pop in her lower back denies any falls patient is been able to ambulate but limited secondary to pain patient reports she is due back to work tomorrow morning at 9 AM but is concerned because of her pain in her back denies any fevers denies any bowel or bladder incontinence now in ED for further eval Timing/Duration: today Method of Injury: bending, lifting Quality: aching Back Pain Location: lumbar spine Severity of Pain-Max: mild Severity of Pain-Current: mild Modifying Factors: Improves With: nothing Associated Symptoms: tingling in legs/feet, muscle spasms, No fever, No chills, No sweating, No urinary incontinence, No sensory/motor loss Allergies/Adverse Reactions: naltrexone Allergy (Severe, Verified 10/07/24 08:27) Anaphylactic Reaction adhesive Allergy (Verified 10/07/24 08:27) gluten Allergy (Verified 10/07/24 08:27) latex Adverse Reaction (Verified 10/07/24 08:27) Home Medications: Atorvastatin Calcium 1 tab PO DAILY 10/07/24 [History] Eptinezumab-Jjmr [Vyepti] 100 mg IV Q3M 10/07/24 [History] Famotidine 20 mg [Pepcid 20 MG] 1 tab PO DAILY 10/07/24 [History] Ketorolac Trometh 10 mg Tab [TORAdol 10 MG TABLET] 1 tab PO DAILY 10/07/24 [History] Levothyroxine Sodium [Synthroid] 25 mcg PO DAILY 10/07/24 [History] Lisinopril 20 mg [Zestril 20 MG] 1 tab PO DAILY 10/07/24 [History] Ubrogepant [Ubrelvy] 1 tab PO DAILY PRN 10/07/24 [History] Zavegepant HCl [Zavzpret] 1 spray IN DAILY 10/07/24 [History] Hx Tetanus, Diphtheria Vaccination/Date Given: No Hx Influenza Vaccination/Date Given: No Hx Pneumococcal Vaccination/Date Given: No - Review of Systems Constitutional: No Fever, No Chills Eyes: No Symptoms Ears, Nose, & Throat: No Symptoms Respiratory: No Cough, No Dyspnea Cardiac: No Chest Pain, No Edema, No Syncope Abdominal/Gastrointestinal: No Abdominal Pain, No Nausea, No Vomiting, No Diarrhea Genitourinary Symptoms: No Dysuria Musculoskeletal: Back Pain, No Neck Pain Skin: No Rash Neurological: No Dizziness, No Focal Weakness, No Sensory Changes Psychological: No Symptoms Endocrine: No Symptoms All Other Systems: Reviewed and Negative - Past Medical History Pertinent Past Medical History: Yes Neurological History: Migraines ENT History: No Pertinent History Cardiac History: Hypertension Respiratory History: Asthma, Bronchitis Endocrine Medical History: Hypothyroidism Musculoskeletal History: No Pertinent History GI Medical History: Other History: No Pertinent History Psycho-Social History: Attention Deficit Disorder Female Reproductive Disorders: Cervical Cancer Other Medical History: vaotilio [place] bleeding disorder--clotting factor too low BUT CLOTTING FACTOR IS CURRENTLY IN THE 700'S AND 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 CELIAC DISEASE - Past Surgical History Past Surgical History: Yes Neuro Surgical History: No Pertinent History Cardiac: Other Respiratory: No Pertinent History Gastrointestinal: Cholecystectomy Genitourinary: No Pertinent History Musculoskeletal: Orthopedic Surgery Female Surgical History: Hysterectomy, Tubal Ligation Other Surgical History: 2 KNEE AND 1 SHOULDER. CARDIAC ABLATION 16 YEARS OLD 1997 - Social History Drug Use: none - Physical Exam General Appearance: no apparent distress, alert Eye Exam: PERRL/EOMI, eyes nml inspection Neck Exam: normal inspection, non-tender, supple, full range of motion, No meningismus, No midline tenderness Respiratory Exam: normal breath sounds, lungs clear, No respiratory distress Cardiovascular Exam: regular rate/rhythm, normal heart sounds Gastrointestinal Exam: soft, No tenderness, No mass Back Exam: muscle spasm (LUMBAR SACRAL) Extremity Exam: normal inspection, normal range of motion, No calf tenderness, No pedal edema Neurologic Exam: alert, oriented x 3, cooperative, leasing agent II-XII nml as tested, normal mood/affect, nml station & gait, sensation nml, No motor deficits Skin Exam: normal color, warm, dry, No rash - Progress Progress Note: 01/03/25 02:20 Patient was given a shot of Toradol and Flexeril in the ED recommended she follow-up for an MRI recommend close return precautions patient was given a short course of Flexeril for home - Departure Departure Disposition: Home Clinical Impression: Lumbar back sprain Qualifiers: Encounter type: initial encounter Qualified Code(s): S33.5XXA - Sprain of ligaments of lumbar spine, initial encounter Condition: Stable Critical Care Time: No Referrals: CECILIO MENESES MD [Primary Care Provider, [facility]] - Follow up/PCP as directed Instructions: Low Back Pain (DC), Sciatica (DC), Low back pain in adults, Muscle strain Forms: Work/School Release Form Prescriptions: Cyclobenzaprine HCl 10 mg [Cyclobenzaprine 10 MG] 10 mg PO DAILY PRN PRN 7 Days #7 tablet PRN Reason: Muscle Spasms
[2025-01-03 02:27] VITALS: TEMP 98
[2025-01-03] MEDS ORDERED: TORAdol 30 mg Injection ONE (02:45)
[2025-01-03] MEDS ORDERED: Cyclobenzaprine 10 MG ONE (02:46)
[2025-01-03] MEDS: Cyclobenzaprine 10 MG PO ONE (02:47)
[2025-01-03] MEDS: TORAdol 30 mg Injection IM ONE (02:48)
[2025-01-03 02:56] VITALS: BP 131/79; PULSE 67; RESP 18; O2SAT 96
== END 2025-01-03 02:58 | disposition home or self-care (01) ==
LOC: ED 01:15
DX: S33.5XXA Sprain of ligaments of lumbar spine, initial encounter (principal); X50.0XXA Overexertion from strenuous movement or load, initial encounter; Y93.F2 Activity, caregiving, lifting; Y92.818 Other transport vehicle as the place of occurrence of the external cause; Y99.0 Civilian activity done for income or pay; I10 Essential (primary) hypertension; Z79.899 Other long term (current) drug therapy